=== PATIENT | male | born 1995 | race Caucasian/White ===

== ENCOUNTER 2017-06-25 13:10 | Emergency (ER) | payer OTHER ==
[~2017-06-25] VITALS: Ht 172.7 cm; Wt 79.4 kg
[~2017-06-25 13:10] MED LIST: ABILIFY MAINTE400 M1 IM; AFRIN PUMPMIST15 ML NASB; ALBUTEROL0.09 MG/A1 INH; ATIVAN0.5 MG PO; DEPAKOTE500 MG PO; DIVALPROEX SOD500 M1 PO; FLONASE120 SPRAY/ NASB; LITHIUM CARBON300 M5 PO; NEURONTIN300 MG PO; OLANZAPINE10 MG PO; PERCOCET 325 MG1 TA2 PO; PREDNISONE 20MG20 MG PO; PROPRANOLOL HCL10 M1 PO; SALINE 90 ML90 ML NASB; TESSALON PERLE100 MG PO; TRAZODONE HCL100 M1 PO; TRAZODONE50 MG PO; XANAX1 MG PO; ZYPREXA5 MG PO
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
[2017-06-25 13:58] LABS: ABSOLUTE BASOPHIL COUNT 0 /CUMM (0.0-0.2); ABSOLUTE EOSINOPHIL COUNT 0.1 /CUMM (0.0-0.7); ABSOLUTE GRANULOCYTE CT 7.2 /CUMM (1.4-6.5); ABSOLUTE LYMPH COUNT 1.4 /CUMM (1.2-3.4); ABSOLUTE MONOCYTE COUNT 0.4 /CUMM (0.10-0.60); BASOPHIL % 0.3 % (0.0-2.0); GRANULOCYTE % 79.6 % (42.2-75.2); HEMATOCRIT 44.5 % (42-52); MEAN CORPUSCULAR HGB 27.6 PG (27.0-31.0); MEAN CORPUSCULAR HGB CONC 32.8 G/DL (33.0-37.0); MEAN CORPUSCULAR VOLUME 84.3 FL (80.0-94.0); MEAN PLATELET VOLUME 8.4 FL (7.4-10.4); PLATELET COUNT 230 /CUMM (130-400); RBC DISTRIBUTION WIDTH 13.3 % (11.5-14.5); RED BLOOD CELL CT 5.29 /CUMM (4.70-6.10); WHITE BLOOD CELL COUNT 9.1 /CUMM (4.8-10.8)
[2017-06-25] MEDS ORDERED: HYDROXYZINE HCL25 M3 PO (14:19)
[2017-06-25] MEDS ORDERED: LITHIUM CARBON600 M1 PO (14:19)
[2017-06-25] MEDS ORDERED: MELATONIN10 M2 PO (14:20)
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
[2017-06-26 11:04] LABS: LITHIUM 0.2 mmol/L (0.6-1.2)
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
[2017-06-26 13:56] VITALS: BP 126/88
--- NOTE | 2017-06-26 15:21 | ED PSY CRISIS COLLATERAL NOTE ---
Collateral Note Collateral Note Family/Inform/Brianna Contacts: Spoke to Bere from ([facility]) -[phone]- work cell phone. Informed Bere that patient was discharged from ED to follow up with his provider at [facility] on 06/27/17 at 8:30 a.m. Informed Bere that he would be living in [place] and she stated that they will not travel to [place] therefore the patient would need to be discharged. Crisis informed Bere that patient was made aware of this and he also wanted to call and advocate for services for himse.
--- NOTE | 2017-06-26 15:41 | ED PSY CRISIS COLLATERAL NOTE ---
Collateral Note Collateral Note Family/Inform/Brianna Contacts: Left message for Nirmala Bliss, [facility] ([phone]) informing her that Albaro was discharged and that the consult would be faxed over.
== END 2017-06-26 14:25 ==
LOC: ERH 13:10
PROVIDERS: Physician Assistant Medical
DX: R45.851 Suicidal ideations (principal); R45.850 Homicidal ideations; F19.10 Other psychoactive substance abuse, uncomplicated
CPT/HCPCS: 80307; G0480

== ENCOUNTER 2017-10-22 13:15 | Emergency (ER) | payer OTHER, MEDICARE ==
[~2017-10-22] VITALS: Ht 175.3 cm; Wt 104.3 kg
[~2017-10-22 13:15] MED LIST changes: +HYDROXYZINE HCL25 M3 PO; +LITHIUM CARBON600 M1 PO; +MELATONIN10 M2 PO
[2017-10-22 13:26] VITALS: BP 126/84
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
[2017-10-22] MEDS ORDERED: LITHIUM CARBON300 M4 PO (15:09)
[2017-10-22] MEDS ORDERED: LITHIUM CARBON150 M1 PO (15:10)
--- NOTE | 2017-10-22 15:18 | RADIOLOGY REPORT ---
EXAMINATION: XRY-SHOULDER COMPLETE-LEFT, XRY-ELBOW 3 OR MORE VIEWS, CLINICAL INFORMATION: 22-year-old male patient with left shoulder and elbow pain COMPARISON: None TECHNIQUE: 4 views of the left shoulder and 4 views of left elbow. FINDINGS: Left shoulder: The bones, joints, and soft tissues are normal. There is no evidence of fracture or dislocation. Left elbow: The bones and soft tissues are normal. There is no evidence of fracture, joint effusion, or dislocation. IMPRESSION: Normal exams.
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
[2017-10-22] MEDS ORDERED: ROXICODONE5 M1 PO (15:27)
== END 2017-10-22 15:50 ==
LOC: ERH 13:15
DX: S09.90XA Unspecified injury of head, initial encounter (principal); S06.0X0A Concussion without loss of consciousness, initial encounter; S00.91XA Abrasion of unspecified part of head, initial encounter; M25.522 Pain in left elbow; M25.512 Pain in left shoulder; Y04.8XXA Assault by other bodily force, initial encounter; Y92.9 Unspecified place or not applicable
CPT/HCPCS: 73030-LT; 73080-LT; 90471; 90714

== ENCOUNTER 2018-01-29 22:12 | Emergency (ER) | payer OTHER, MEDICARE ==
[~2018-01-29 22:12] MED LIST changes: +LITHIUM CARBON150 M1 PO; +LITHIUM CARBON300 M4 PO; +ROXICODONE5 M1 PO
[2018-01-29 23:12] LABS: ABSOLUTE BASOPHIL COUNT 0.1 /CUMM (0.0-0.2); ABSOLUTE EOSINOPHIL COUNT 0.2 /CUMM (0.0-0.7); ABSOLUTE LYMPH COUNT 2.9 /CUMM (1.2-3.4); ABSOLUTE MONOCYTE COUNT 0.5 /CUMM (0.10-0.60); BASOPHIL % 0.8 % (0.0-2.0); EOSINOPHIL % 2.6 % (0-5); GRANULOCYTE % 57.4 % (42.2-75.2); HEMATOCRIT 39.7 % (42-52); MEAN CORPUSCULAR HGB 28.6 PG (27.0-31.0); MEAN CORPUSCULAR HGB CONC 33.8 G/DL (33.0-37.0); MEAN CORPUSCULAR VOLUME 84.9 FL (80.0-94.0); MEAN PLATELET VOLUME 8.6 FL (7.4-10.4); PLATELET COUNT 239 /CUMM (130-400); RBC DISTRIBUTION WIDTH 13.7 % (11.5-14.5); RED BLOOD CELL CT 4.68 /CUMM (4.70-6.10); WHITE BLOOD CELL COUNT 8.6 /CUMM (4.8-10.8)
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
[2018-01-30 03:44] LABS: LITHIUM < 0.2 mmol/L (0.6-1.2)
--- NOTE | 2018-01-30 12:05 | ED PSYCH CRISIS CONSULTATION ---
See Addendum Crisis Consult Basic Assessment Date of Consult: 01/30/18 Responsible Person/Accompanied By: Reinier Rose, father Insurance Authorization: Insurance #1: Insurance name: MEDICARE A Phone number: Policy number: [id number] Group number: Authorization number: ED Provider: Patient's ED Provider: Theodore Bah MD Primary Care Physician: Patient's PCP: Maxime Lauren MD PCP's Chief Complaint: Psychiatric Related ? H.I. and S.I, Patient's Quote: "i have been taking my medication. My parents don't know" Present Illness: Patient is a 22 year old unmaried male who lives with his parents in [place], [place] Patient was brought to the hospital E D on PEER as patient had been sent home from classes at [employer] for being drunk or impaired, and had made statements that he was "going to get his father's gun and shoot up the school." Patient's father reports that he has not been at all compliant with any of his psychiatric medications, and that he has, in fact, been stating to father "in a matter of fact manner, that he was going to get his fathers gun, and get shot by police". Patient's father speculates that patient seemed to indicate that this would work best, as he might not have the ability to suicide on own". Father reports that patient has been much more depressed of late, and that he continues to use, and has refused medications. Patient states that he has been taking his lithium,but not in front of parents. Patient seeks to minimize his degree of impaimrment. ([place] level is 0.2). Patient began to cry immediately after interview began. Patient was tearful and asking to see his father. Patient was alert and oriented x 3. He is tearful, and apprehensive about being hospitalized. Patient has required a number of inpatient admissions, including a lengthy stay at [facility]. Patient appears to have limited coping skills when stressed. Patient appears to be uncomfortable in social situations, and tends to provide easiest answer. Patient has long history of psychiatric illness. His family continue to be supportive, and patient lives at home with them. Patient has also been continuing to use cannabis, as well as some Ecstasy. Patient will need admission to inpatient psychiatric unit as he poses danger to self and others at this time. Spoke additionally with father, who assures me that he has a gun, but it is locked in a safe, and patient does not know the combination, but he does know that it is there. Patient's Address: [address] [place] [address] [place] [address] Other Phone Number: Who Do You Live With? Family Family/Informants Interviewed: Reinier Rose father Allergies - Coded Allergies: paroxetine (From Paxil) (AGITATION/ANXIETY 12/27/15) Current Medications - Scheduled Medications Aripiprazole (Abilify Maintena) 400 MG SUSER.VIAL 400 MG IM Q30D MENTAL HEALTH #1 (Reported) Entered as Reported by Ina Marks on 01/23/162002 [place] Carbonate 600 MG CAPSULE 2 CAP PO BID MENTAL HEALTH #60 (Reported) Entered as Reported by Jc Blackmon on 06/25/17 1419 [place] Carbonate 300 MG CAPSULE 1 CAP PO DAILY MENTAL HEALTH #30 (Reported) Entered as Reported by Jc Blackmon on 10/22/17 1509 [place] Carbonate 150 MG CAPSULE 1 CAP PO DAILY MENTAL HEALTH #30 (Reported) Entered as Reported by Jc Blackmon on 10/22/17 1510 Scheduled PRN Medications Oxycodone HCl (Roxicodone) 5 MG TABLET 1 TAB PO BID PRN PAIN #8 TAB Prescribed by Kaleb Thakur on 10/22/17 Laboratory Results: Laboratory Tests 01/30/18 0523: Urine Opiates Screen 279, Methadone Screen < 40, Barbiturate Screen < 60, Ur Phencyclidine Scrn < 6.00, Amphetamines Screen > 1450 H, U Benzodiazepines Scrn > 800 H, Urine Cocaine Screen < 50, Urine Cannabis Screen > 80.00 H 01/29/18 2300: Anion Gap 9, Estimated GFR > 60, BUN/Creatinine Ratio 10.0, Glucose 90, Calcium 8.9, Total Bilirubin 0.3, AST 28, ALT 37, Alkaline Phosphatase 59, Total Protein 6.1 L, Albumin 3.7, Globulin 2.4, Albumin/Globulin Ratio 1.5, CBC w Diff NO MAN DIFF REQ, RBC 4.68 L, MCV 84.9, MCH 28.6, MCHC 33.8, RDW 13.7, MPV 8.6, Gran % 57.4, Lymphocytes % 33.1, Monocytes % 6.1, Eosinophils % 2.6, Basophils % 0.8, Absolute Granulocytes 5.0, Absolute Lymphocytes 2.9, Absolute Monocytes 0.5, Absolute Eosinophils 0.2, Absolute Basophils 0.1, [place] < 0.2 L, Serum Alcohol 34.0 01/29/18 2247: [place] Cancelled Past History Past Medical History Neurological: migraine EENT: NONE Cardiovascular: NONE Respiratory: asthma Gastrointestinal: GERD HX Hepatic: NONE Renal: NONE Musculoskeletal: NONE Psychiatric: anxiety, bipolar disease, depression, substance abuse, PTSD Endocrine: NONE Blood Disorders: NONE Cancer(s): NONE CALL OR CONTACT CENTRE TEAM LEADER/Reproductive: NONE Past Surgical History Surgical History: Tonsillectomy and adenoidectomy. Psychosocial History Strengths/Capabilities: The patient is connected to treatment and has a supportive family. Physical Limitations (Interventions): None identified Psychiatric Treatment History Psych Treatment Psychiatric Treatment Yes Inpatient Treatment Yes Outpatient Treatment Yes Location of Treatment [facility]. Reason for Treatment bipolar d/o Dates of Treatment past 3+ years Response to Treatment fair Diagnosis by History: Per Hx. Bipolar d/o, anxiety, cannabis abuse, benzo abuse Substance Use/Abuse History Drug Use/Abuse Substances Used/Abused Yes Substance Used/Abused Marijuana First Use age 14 or 15 Last Used yesterday How much used/taken varies How often daily For how long on /off x 2 years Route of use inhale Substance Abuse Treatment Substance Abuse Treatment Past Substance Abuse [place] Yes Inpatient Treatment No Outpatient Treatment Yes Location of Treatment [facility] Reason for Treatment dual dx Dates of Treatment 2016 Response to Treatment patient continues to use. Comments: patient minimizes use, but continues. Current Mental Status Mental Status Orientation: Current situation, Person, Place, Situation Affect: Anxious, Constricted, Depressed, Hopeless, Sad Speech: Mumbled, Poverty, Soft Neuro-vegetative: Appetite Decreased, Concentration Poor, Sexual Interest Decreased, Sleep Disturbance Appearance Appearance- Dress/Hygiene: poor hygeine Behaviors Thought Process: WNL Thought Content: WNL Memory: Impaired Insight: Poor SI/HI Risk Assessment Past Suicidal Ideation/Attempts Yes Current Suicidal Ideation/Att Yes Past Homicidal Ideation/Att: No Current Homicidal Ideation/Attempts No (but made threat, now denies) Degree of Intent: Plan Danger To: Self Gravely Disabled: Lack of Insight, Poor Impulse Control, Poor Judgment Risk Factors: age (under 24/over 65), access to lethal means, high anxiety/ distress, SA/MH hospitalized, substance abuse, poor impulse control, male Lethality Ratin PTSD Checklist PTSD Done? 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 Patient exhibits limited insight and appears hopeless. Departure Disposition Psych Medical Clearance Date: 01/30/18 Medically Cleared at: 1100 Time Started: 1110 Time Ended: 1200 Psychiatrist Consulted: ROBERTH Date Disposition Established: 01/30/18 Time Disposition Established: 1330 Plan for Disposition - Modality: Inpatient Psychiatry Referrals Lauren Maxime MERCEDES (PCP/Family)
[2018-01-30] MEDS ORDERED: LITHIUM CARBON300 M4 PO ×2 (18:34)
[2018-01-30] MEDS ORDERED: ABILIFY10 M1 PO (18:36)
[2018-01-30] MEDS ORDERED: HYDROXYZINE HCL25 M3 PO (18:37)
--- NOTE | 2018-01-31 17:38 | ED PSYCHIATRIST/APRN CONSULT ---
Psychiatrist/FINANCIAL AID ED Consult Assessment and Plan: 22 year old gentleman with past psychiatric history, past admissions to [facility] , in the ER after he was sent home for being intoxicated, and made statement threatening to take his father's gun and shoot up the school. per crisis note, he had not been adherent to his psychiatric medications and had told father that he wants to take his gun and get shot by the police, and that he had contemplated different ways to commit suicide overall. He had been depresesd overall, not adherent to treatment, and using various drugs. He was slated for admission and a bed search is in progress. Evaluated patient, who was minimizing his behavior, said that he was "hanging out with some girls and I may have written a text message suggesting suicide" but that it was not a big deal and overall did not discuss the threats with the gun. He stated that he hopes to go home, spend time with his family and stay away from the crowd of people he was doing drugs with. I explained to him that he continues to be on the roster for admission, and he appeared to understand. He has been on gabapentin, vistaril, benadryl, propranolol, abilfy oral and long acting injectable, olanzapine and lithium in the past. Li level was negative. Rec: continues to have increased acute risk of violence to self and others based on lethality of his recent threats (gun), poor adherence to treatment and overall decompensation. Continues to need IP admission at this time. Continue olanzapine, increase over next several days dose.
--- NOTE | 2018-02-01 14:45 | ED PSYCHIATRIST/APRN CONSULT ---
Psychiatrist/SR. CONSULTANT ED Consult Assessment and Plan: Seen this morning, annoyed, somewhat emotional, wants to go home. I explained to him again that due to his risk factors and not doing well in the home, he continues to be on the slate for admission, however he has had no behavioral issues in the ER, has been engaged with crisis workers and able to give history, participate in evaluations, all of which are positive things noting that he is doing better. He states that he does not want to , just wants to go home. He has few other supports or things he is excited about. He is irritated, stating that if he goes to [facility] or [facility] he will be more anxious and not benefit, in addition to becoming paranoid. He becomes emotional quickly in regards to these statements. A; 22 year old gentleman with past psychiatric history, past admissions to [facility], in the ER after he was sent home for being intoxicated, and made statement threatening to take his father's gun and shoot up the school. per crisis note, he had not been adherent to his psychiatric medications and had told father that he wants to take his gun and get shot by the police, and that he had contemplated different ways to commit suicide overall. He had been depresesd overall, not adherent to treatment, and using various drugs. He continues to minimize or deny many of these statements. MSE: fair grooming,young man, in hospital gow. Speech is normal. Becomes emotional quickly, mood depressed. Eye contact fair. Thought process linear. Thought content free of delusional thinking. Denies wanting to or shoot anyone including anyone at his school. Not hallucinating. Insight is impaired and judgment is impaired. Rec: continues to have increased acute risk of violence to self and others based on lethality of his recent threats (gun), poor adherence to treatment and overall decompensation. mitigating factors are family support in addition to his recurrent statements that he is not suicidal and wants to go home, in addition to some future oriented plans, at least in regards to which hospital he attends. Continues to need IP admission at this time. Continue olanzapine, he does not want any change in dose at this time.
[2018-02-02 13:03] VITALS: BP 112/84
== END 2018-02-02 13:03 | disposition short-term general hospital (02) ==
LOC: ERH 22:12
PROVIDERS: Emergency Medicine
DX: F31.9 Bipolar disorder, unspecified (principal)
CPT/HCPCS: 80307; G0463; G0480